=== PATIENT | male | born 1965 | race Caucasian/White ===

== ENCOUNTER 2024-08-22 06:23 | Day surgery (SDC) | payer BC, SELFPAY | END 2024-08-22 14:03 | disposition home or self-care (01) | LOC: GI 06:23 | PROVIDERS: ATTENDING PHYSICIAN Internal Medicine Gastroenterology | DX: Z12.11 Encounter for screening for malignant neoplasm of colon (principal); K64.8 Other hemorrhoids; D12.5 Benign neoplasm of sigmoid colon | CPT/HCPCS: 45385; 88305 ==

== ENCOUNTER 2025-01-18 19:16 | Emergency (ER) | payer BC, SELFPAY ==
[2025-01-18 19:30] VITALS: BP 140/106
[2025-01-18 19:44] VITALS: BP 128/95
[2025-01-18 19:45] LABS: Hematocrit 39.5 % (39.0-52.0); Hemoglobin 13.7 g/dL (13.0-18.0); Mean Corp Hgb Conc. 34.7 g/dL (33.0-37.0); Mean Corpuscular Volume 92.7 fL (80.0-94.0); Nucleated Red Blood Cells % 0 % (-); Platelet Count 142 10^3/uL (130-400); Red Cell Dist. Width 12.6 % (11.5-14.5)
[2025-01-18 19:58] LABS: INR 2.12; PT 24.2 Sec (11.4-14.6)
[2025-01-18 20:20] VITALS: BMI 26.7
[2025-01-18 20:23] VITALS: BP 152/109
[2025-01-18 20:38] LABS: ALT (SGPT) 19 U/L (0-50); AST (SGOT) 27 U/L (17-59); Albumin 4.7 g/dl (3.5-5.0); Alkaline Phosphatase 104 U/L (38-126); Blood Urea Nitrogen 20 mg/dl (9-20); Calcium 9.6 mg/dl (8.4-10.2); Carbon Dioxide 25 mmol/L (22-30); Chloride 108 mmol/L (98-107); Estimated Creatinine Clearance 77 ml/min; Glucose 106 mg/dl (70-99); Potassium 4.6 mmol/L (3.5-5.1); Sodium 140 mmol/L (135-145); Total Protein 7.5 g/dl (6.3-8.2); eGFR > 60.00
[2025-01-18 21:00] VITALS: BP 140/103
--- NOTE | 2025-01-18 21:42 | ED.GENMED ---
History of Present Illness
General
Chief Complaint: Fall
Source: patient and spouse
Exam Limitations: none
Time Seen by Provider: 01/18/25 20:20
History of Present Illness
History of Present Illness:
59-year-old male fell down a half a flight of steps. Not a full flight. He was carrying a laundry bag. Fell onto his forehead. No LOC. He is on Coumadin for clotting disorder. Mostly complaining of left upper neck pain. No chest pain no
shortness of breath no abdominal pain no severe headache no syncope.
Past History
Past History
ED Past Medical History: HTN, Seizures and Other (Clotting disorder/PE)
ED Past Surgical History: Cholecystectomy, Orthopedic and Other (hernia/brain surgery)
Social History
Tobacco: Non-smoker
Alcohol: Occasional
Personal:
Living: with family
Review of Systems
Review of Systems
All Other Systems: Not applicable
Respiratory: Reports no symptoms
Cardiac: Reports no symptoms
ABD/GI: Reports no symptoms
Phy Exam
Physical Exam
Physical Exam:
GENERAL: Alert and oriented in no apparent distress. Normocephalic
EYE: Orbits normal.
NECK: Collar in place
ENT: Pharynx without erythema
CARDIAC: Regular rate and rhythm without any obvious murmurs.
LUNGS: Clear breath sounds,normal
ABDOMEN: Soft, without focal tenderness or distention
NEUROLOGICAL: Alert and oriented , grossly non-focal
SKIN: Warm and dry, mild ecchymosis over the right patella
MUSCULOSKELETAL: No edema,no deformity.Good color. Good range of motion of all extremities
PSYCH: Normal and appropriate interaction.
Course
Orders/Labs/Results
Orders:
Orders
01/18/25 19:29
CT Head W/o Iv Contrast Urgent
Comment:
Reason For Exam: fall on thinners
Cervical Spine wo Contrast CT [CT Cervical Spine W/o Iv Contr] Urgent
Comment:
Reason For Exam: fall on thinnners neck pain
01/18/25 19:37
Complete Blood Count/With Diff Urgent
Comprehensive Metabolic Panel Urgent
Prothrombin Time Urgent
01/18/25 21:51
Acetaminophen [Tylenol] 1,000 mg PO NOW STA
01/18/25 21:56
Cardiac Monitoring- Treatment ONCE
01/19/25 01:00
CT Head W/o Iv Contrast Urgent
Comment:
Reason For Exam: Head injury/anticoagulated. 6-hour repeat
CT Neck Angio W/wo Iv Contrast Urgent
Comment: changed to cta of neck per attending due to injury
Reason For Exam: Fall/posterior first rib fracture
Abnormal Lab Results
01/18/25
19:37
RBC 4.26 L 10^6/uL
(4.70-6.10)
MCH 32.2 H pg
(27.0-31.0)
Lymphocytes % 19.3 L %
(20.5-51.1)
PT 24.2 H Sec
(11.4-14.6)
Chloride 108 H mmol/L
(98-107)
Glucose 106 H mg/dl
(70-99)
01/18/25 19:37
01/18/25 19:37
Vital Signs
Initial and Last Documented VS:
Initial Vital Signs
BP
140/106
01/18/25 19:30
Last Documented Vital Signs
Pulse Resp BP Pulse Ox
56 18 116/82 97
01/19/25 02:15 01/19/25 02:15 01/19/25 02:00 01/19/25 02:15
*Radiology
Radiology exam reviewed: radiology read reviewed (Stable head CT. Posterior hairline first rib fracture) and other (CT angiography unremarkable.)
*Pulse Oximetry
SaO2: 97
Oxygen Mode of Delivery: Room air
Patient hypoxic: no
*Critical Care Note
Total Time (30-74mins, 75-104mins- exclusive of procedures): Not Applicable
Update Note
Update Note:
2129.... Patient was reexamined. Collar was removed. Tenderness is actually more consistent with the right posterior first rib. He has no real true cervical tenderness it is below this area and slightly lateral. Neurologic exam is normal.
Remains awake alert in no distress. Did ask for Tylenol. Had offered earlier we will repeat his CT scan given the mechanism.
2154... I have a very low suspicion for any vascular injury related to the trauma. And the posterior rib fracture. He denies any chest trauma he has no chest pain no shortness of breath no abdominal pain. However for completeness because of the
posterior rib fracture we will CT his chest when we reCT his head
Patient has remained stable and nontoxic. Repeat CT stable. CT of the neck and upper chest negative. Discharged to follow-up
ED Attending Note
-
Portions of this chart may have been created with voice recognition software.� Occasional wrong word or��sound alike� substitutions may have occurred due to the inherent limitations of voice recognition software.
Discharge Plan
Departure
Patient Disposition: Home (Routine Discharge)
Date of Disposition: 01/19/25
Time of Disposition: 02:20
Patient with high blood pressure during this ER visit?: Yes
Discharge Problem:
Closed head injury, First rib fracture, Neck injury
Instructions: Head Injury in Adults (DC), Cervical Sprain ED, BLOOD PRESSURE, Rib Fracture
Prescriptions:
No Action
clonazepam 1 mg Tablet
1 mg PO HS
Patient Comments:
05/04/2023, pt. filled this medication on 03/26/2023 for 90 tablets according to PDMP.
lamotrigine 150 mg Tablet
150 mg PO DAILY
lamotrigine 150 mg Tablet
225 mg PO HS
psyllium Packet
1 packet PO DAILY
Artificial Tears (PF) 0.1-0.3 % Dropperette
1 drp BOTH EYES DAILYPRN PRN (Reason: itchy eyes)
Xcopri Maintenance Pack 250mg/day(150 mg x1-100mg x1) Tablet
250 mg PO HS
Patient Comments:
05/04/2023, pt. filled this medication on 04/21/2023 for 56 tablets according to PDMP.
enoxaparin [Lovenox] 100 mg/mL syringe
90 mg SC Q12H 20 Days Qty: 36 0RF
Referrals:
Clayton Couch I., [Family Provider, Internal Medicine] - Follow up in 2-3 days
Activity Restrictions/Additional Instructions:
Tylenol only for pain
Your INR is 2.12. Follow this up with your physician
Interventions
Interventions:
*Risk Screen - Suicide Last Done: 01/18/25 19:25
*General Assessment Last Done: 01/18/25 19:25
*Neglect/Abuse Screening Last Done: 01/18/25 19:25
*ED- Fall Risk Assessment Last Done: 01/18/25 19:25
*ED COVID-19 Vaccine History Last Done: 01/18/25 19:25
*ED Influenza Vaccine History Last Done: 01/18/25 19:25
*Nursing Disposition Last Done: 01/19/25 02:32
ED-Musculoskeletal Assessment Last Done: 01/18/25 20:21
ED- Neurological Assessment Last Done: 01/18/25 20:21
ED-Skin Assessment Last Done: 01/18/25 20:21
Discharge Date and Time
Discharge Date/Time: 01/19/25 02:33
Print Language: [email or web address]
[2025-01-18 22:00] VITALS: BP 149/106
[2025-01-18] MEDS: TYLENOL 1000 MG PO (22:33)
[2025-01-18 23:00] VITALS: BP 127/93
[2025-01-19] VITALS: BP 125/90
[2025-01-19 02:00] VITALS: BP 116/82
== END 2025-01-19 02:33 | disposition home or self-care (01) ==
LOC: EMR 19:16
PROVIDERS: Emergency Medicine; EMERGENCY PHYSICIAN Emergency Medicine; FAMILY PHYSICIAN Internal Medicine
DX: S09.90XA Unspecified injury of head, initial encounter (principal); S22.32XA Fracture of one rib, left side, initial encounter for closed fracture; S19.9XXA Unspecified injury of neck, initial encounter; I10 Essential (primary) hypertension; D68.9 Coagulation defect, unspecified; Z79.01 Long term (current) use of anticoagulants; Z86.711 Personal history of pulmonary embolism; W10.9XXA Fall (on) (from) unspecified stairs and steps, initial encounter; Y93.01 Activity, walking, marching and hiking
CPT/HCPCS: 99284; 70450; 70498; 72125; 80053; 85025; 85610; Q9967